=== PATIENT | male | born 1950 | race Caucasian/White ===

== ENCOUNTER 2016-12-27 12:29 | Inpatient (IN) ==
[2016-12-27] MEDS ORDERED: Ondansetron 4 MG/2 ML VIAL IVP PRN (15:43)
[2016-12-27] MEDS ORDERED: Naloxone 0.4 MG/ML INJ IVP PRN (15:43)
[2016-12-27 16:14] LABS: Basophils % 0.4 %; Eosinophils # 0.3 K/mcL (0.0-0.6); Eosinophils % 3.3 %; Hematocrit 24.9 % (37.5-50.1); Hemoglobin 8.3 g/dL (12.9-16.9); Immature Granulocytes % 0.5 % (0-4); Immature Platelets 7.8 % (1.1-6.1); Lymphocytes # 2.3 K/mcL (0.6-4.6); Lymphocytes % 27.8 %; Mean Corpuscular HGB Conc 33.3 g/dL (31.6-35.5); Mean Corpuscular Hemoglobin 31.8 pg (28.0-33.3); Mean Corpuscular Volume 95.4 fL (83.0-100.0); Mean Platelet Volume 10.8 fL (9.4-12.4); Monocytes # 0.9 K/mcL (0.0-1.3); Monocytes % 10.4 %; Neutrophils # 4.7 K/mcL (1.6-8.9); Platelet Count 211 K/mcL (140-400); Red Blood Count 2.61 M/mcL (4.19-5.50); Segmented Neutrophils % 57.6 %
[2016-12-27] MEDS: D5% in 0.45% NACL 1,000 ML IVC SCH (16:14)
[2016-12-27] MEDS: Pantoprazole 40 MG VIAL IVP SCH (17:14)
--- NOTE | 2016-12-27 18:30 | Internal Med History&Physical ---
Date of Encounter: 12/27/16 Time of Encounter: 17:00 Assessment and Plan (1) CAD (coronary artery disease) of artery bypass graft Current visit: Yes Status: Acute Stop all aspirin and Plavix due to active GI bleed. We will continue with bisoprolol and statin. Qualifiers: [place] vs. transplanted heart: [place] heart Associated angina: without angina Qualified Code(s): I25.810 - Atherosclerosis of coronary artery bypass graft(s) without angina pectoris (2) Anemia due to blood loss, acute Current visit: Yes Status: Acute Monitor hemoglobin and hematocrit every 6 hours. Transfuse if unstable hemodynamically or hemoglobin below 7.5 and continued active bleed. (3) Tobacco abuse Current visit: Yes Status: Acute I have advised smoking cessation. We will provide nicotine replacement therapy. (4) DVT prophylaxis Current visit: Yes Status: Acute Avoid anticoagulation due to active bleed. Encourage ambulation. (5) Upper gastrointestinal hemorrhage Current visit: No Status: Acute Nothing by mouth. IV Protonix. IV fluids. General surgery consult for upper endoscopy. I have discussed the case with Dr. Anthony. Anticipate EGD tomorrow. Internal Medicine - H&P: HPI Chief complaint: Rectal bleeding Admitted From: Hospital to Hospital Transfer Plans for Post Hospital Care: Home History of present illness: Mr. Grant is a 66 year old male with past medical history significant for CAD status post CABG who was transferred from an outside hospital where he presented with rectal bleeding. Patient reports 6 episodes of bloody bowel movements night and 2 more episodes last night, denies any aggravating or alleviating factors any triggering events, denies associated hematemesis nausea and vomiting. He states he was more weak and lightheaded when standing up. He has had similar symptoms in the past and had endoscopy however the source was not found that time. Prior to that event he has had a history of bleeding ulcers. A 10 point review of systems was negative except hernia history of present illness. Family history was reviewed and found to be noncontributory to this presentation. Past Med Surg Social Fam HX - Past Medical History Medical history: coronary artery disease, GI bleed, hyperlipidemia, hypertension , myocardial infarction Psychiatric history: no psych history - Past Surgical History Surgical History: appendectomy, cholecystectomy, coronary bypass (CABG) - Social History Smoking Status: Current every day smoker Packs per day: 1 Smokeless Tobacco Status: No Alcohol use: none Drug use: none Internal Medicine - H&P: Meds Aspirin 81 mg PO DAILY 12/27/16 [History] Bisoprolol Fumarate [Zebeta] 10 mg PO DAILY 12/27/16 [History] Clopidogrel [Plavix] 75 mg PO DAILY 12/27/16 [History] Multivitamin/Ferrous Sulfate [One-Daily Aquaz-Pqh-Xdgc Tab] 18 mg PO DAILY 12/27 [History] Simvastatin [Zocor] 80 mg PO DAILY 12/27/16 [History] Allergies No Known Allergies Allergy (Verified 12/27/16 09:18) All Systems PM: A 10-system review of systems was performed and is negative for pertinent findings except as documented above in the HPI. - Eye Eye exam: Present: PERRL, conjuntiva pink, sclera anicteric Pupils: Present: PERRL - Neck Neck exam general surgery: Present: supple, trachea midline. Absent: lymphadenopathy - Respiratory Respiratory exam: Present: CTAB. Absent: accessory muscle use, rales, rhonchi, wheezes - Cardiovascular Cardiovascular exam: Present: RRR, +S1, +S2. Absent: diastolic murmur, gallop, rubs, systolic murmur - GI/Abdominal GI/Abdominal exam: Present: normal bowel sounds, soft, no peritoneal signs. Absent: distended, tenderness - Extremities Exam Extremities exam: Present: warm, radial pulses palpable and symetrical. Absent : calf tenderness, cyanotic, pedal edema - Neurological Exam Neurological exam: Present: CN II-XII intact, oriented X3, no focal deficits. Absent: pronater drift, facial droop, speech deficit - Skin Skin exam: Present: dry, intact Internal Med - H&P Results - Labs CBC & Chem 7: 12/27/16 16:05 Labs: Short CBC 12/27/16 Range/Units 16:05 WBC 8.1 (4.3-11.1) K/mcL Hgb 8.3 L (12.9-16.9) g/dL Hct 24.9 L (37.5-50.1) % Plt Count 211 (140-400) K/mcL Neutrophils # 4.7 (1.6-8.9) K/mcL Per chart review hemoglobin at [facility] from today was 9.5.
[2016-12-27] MEDS: Nicotine 21 MG PATCH.TD24 TD SCH (18:56)
[2016-12-27 19:16] LABS: Hematocrit 24.4 % (37.5-50.1)
[2016-12-27 21:28] LABS: INR 1.2; Prothrombin Time 13.2 Seconds (9.4-12.1)
--- NOTE | 2016-12-27 22:02 | General Surgery Consult Note ---
Date of Encounter: 12/27/16 Time of Encounter: 21:15 History of Present Illness Consult date: 12/27/16 Requesting physician: Sushil Broderick History of present illness: 66-year-old male patient referred for further evaluation of melena and anemia. The patient indicates that he has had this occur in the past, going both upper and lower endoscopy with no specific findings. This episode began approximately , 12/25/16. Patient indicates he felt somewhat dizzy and lightheaded following day but did not seek medical attention until this morning. The patient presented to [facility] for further evaluation and treatment. He was transferred to [facility] after blood draw demonstrated a hemoglobin of 8.3 and hematocrit 24.9. The patient indicates he last was endoscopically examined at [facility] by Dr Hall (?) in 2014. Past medical history: Coronary artery disease status post CABG in 1997; coronary artery stenting 2 in 1999. Prior GI bleed as mentioned above; hypertension. Surgical history: CABG, cholecystectomy Allergies: No known drug allergies Medications: Simvastatin 80 mg 1 by mouth every evening Clopidogrel 75 mg by mouth daily Bisoprolol 10 mg by mouth daily Aspirin 81 mg by mouth daily Multivitamin 1 by mouth daily Social history: Patient admits to half a pack cigarettes daily for the last 55 years; he does not consume alcohol, never has. He does not use illicit drugs. On physical examination: Age-appropriate male resting comfortably in his hospital bed. He appears to be in no acute distress. The patient has been afebrile, 98.0; pulse 67, respirations 16, blood pressure 106/60; SPO2 on room air 98%. Skin is warm, without obvious jaundice Lungs: Clear to auscultation, no abdominal pain with deep inspiration Cardiac: Regular rate, no appreciable murmurs Abdomen: Soft, nontender. Bowel sounds present. All obvious intra- abdominal masses or hepatosplenomegaly. Extremities: No obvious clubbing cyanosis or edema. Laboratories: White count 9.3; initial hemoglobin 9.5 - most recent 8.0; hematocrit initially 28.7, most recently 24.4; platelet count 211,000 Sodium 139, potassium 5.0, chloride 109, bicarbonate 22, BUN 21, creatinine 1.14. LFTs within normal limits PT/INR 13.2 and 1.2 respectively Impression: 76-year-old male transferred from [facility] for further evaluation recurrent GI hemorrhage. Patient with approx 71 history melena iwth documented fall in H&H. Historical information avaliable at the time of this dictation suggestive chronic anemia. The patient describes previous EGD and colonoscopy with no specific findings. I have discussed this with the patient and have arranged for a repeat EGD in the a.m. The procedure was discussed. The procedure will be completed using IV medications. Risks include hemorrhage, infection, aspiration, Alvaro disruption to the esophagus and failure to identify etiology for this patient's GI bleeding. The patient expressed understanding and is willing to proceed. Consent has been obtained. Past Med Surg Social Fam HX - Past Medical History Medical history: coronary artery disease, GI bleed, hyperlipidemia, hypertension , myocardial infarction Psychiatric history: no psych history - Past Surgical History Surgical History: appendectomy, cholecystectomy, coronary bypass (CABG) - Social History Smoking Status: Current every day smoker Packs per day: 1 Smokeless Tobacco Status: No Alcohol use: none Drug use: none Medications and Allergies Aspirin 81 mg PO DAILY 12/27/16 [History] Bisoprolol Fumarate [Zebeta] 10 mg PO DAILY 12/27/16 [History] Clopidogrel [Plavix] 75 mg PO DAILY 12/27/16 [History] Multivitamin/Ferrous Sulfate [One-Daily Xgjuj-Tvx-Inbt Tab] 18 mg PO DAILY 12/27 [History] Simvastatin [Zocor] 80 mg PO DAILY 12/27/16 [History] Allergies No Known Allergies Allergy (Verified 12/27/16 09:18) Review of Systems All systems PM: A 10-system review of systems was performed and is negative for pertinent findings except as documented above in the HPI. Results - Labs 12/27/16 19:00 Abnormal lab results RBC 2.61 M/mcL (4.19-5.50) L 12/27/16 16:05 Hgb 8.0 g/dL (12.9-16.9) L 12/27/16 19:00 Hct 24.4 % (37.5-50.1) L 12/27/16 19:00 Immature Plt Fraction 7.8 % (1.1-6.1) H 12/27/16 16:05 PT 13.2 Seconds (9.4-12.1) H 12/27/16 20:58 POC Glucose 121 (58-89) H 12/27/16 17:07 All other labs normal. Consult Discharge Plan - Plan Referrals: NO,PCP [Primary Care Provider] -
[2016-12-28 01:12] LABS: Hematocrit 23.4 % (37.5-50.1); Hemoglobin 7.7 g/dL (12.9-16.9)
[2016-12-28 01:27] LABS: Alanine Aminotransferase 9 Units/L (0-55); Albumin 2.8 g/dL (3.5-5.0); Albumin/Globulin Ratio 1.2 (1.1-2.2); Alkaline Phosphatase 103 Units/L (38-126); Aspartate Amino Transferase 11 Units/L (5-34); BUN/Creatinine Ratio 18 (6-26); Bilirubin,Total 0.9 mg/dL (0.2-1.2); Blood Urea Nitrogen 16 mg/dL (8-26); Calcium 7.7 mg/dL (8.6-10.8); Carbon Dioxide 24 mEq/L (19-29); Chloride 109 mEq/L (98-109); Globulin 2.3 g/dL (2.4-3.5); Glucose 114 mg/dL (70-99); Magnesium 1.6 mg/dL (1.6-2.6); Osmolality,Calculated 290 (280-300); Potassium 3.5 mEq/L (3.5-4.5); Sodium 139 mEq/L (136-145); Total Protein 5.1 g/dL (6.0-8.3); eGFR For African Americans > 60 (> 60); eGFR For Non-African Americans > 60 (> 60)
[2016-12-28] MEDS: D5% in 0.45% NACL 1,000 ML IVC SCH ×2 (04:54→18:06)
[2016-12-28] MEDS: Pantoprazole 40 MG VIAL IVP SCH ×2 (05:46→18:07)
[2016-12-28] MEDS: Bisoprolol/HCTZ 10/6.25 TABLET PO SCH (07:23)
[2016-12-28] MEDS ORDERED: Simethicone 40 MG/0.6 ML MLS IR ONE (08:16)
[2016-12-28] MEDS ORDERED: *HR* FentaNYL (PF) 100 MCG/2 ML VIAL IVP PRN (08:16)
[2016-12-28] MEDS ORDERED: Tetracaine/Benzocaine/Butamben 200MG/SPRAY (100SPY/BOT) MM ONE (08:16)
--- NOTE | 2016-12-28 08:19 | Pre-Sedation Evaluation ---
Pre-sedation evaluation - Pre-sedation checklist Date of procedure: 12/28/16 Procedure: EGD Recent Vitals: Last Vital Signs Temp 98.5 F 12/28/16 08:14 Pulse 71 12/28/16 08:14 Resp 18 12/28/16 08:14 BP 148/63 12/28/16 08:14 Pulse Ox 95 12/28/16 08:14 H&P (including ROS) documented in medical record: Yes Previous reaction to sedatives/anesthetics: No Dietary Status: NPO after Midnight Airway Assessment: Patient can open mouth completely, TMJ function normal, Micrognathia (under-bite, receding chin) absent, Neck with adequate range of motion Dentition: dentures removed Possible difficult airway: No ASA Classification *see protocol: CLASS II-Mild systemic disease Plan of Care: Pt appropriate candidate for procedure/moderate/conscious sedation , Risks/benefits of procedure/sedation discussed w/ patient/family
[2016-12-28] MEDS ORDERED: *HR* FentaNYL (PF) 100 MCG/2 ML VIAL ONE (08:21)
[2016-12-28] MEDS ORDERED: *HR* Midazolam HCl 5 MG/5 ML VIAL IVP ONE (08:21)
[2016-12-28] MEDS: *HR* Midazolam HCl 5 MG/5 ML VIAL IVP PRN ×3 (08:24→08:42)
[2016-12-28] MEDS ORDERED: 0.9 % Sodium Chloride 1,000 ML IVC SCH (08:30)
[2016-12-28 12:11] LABS: Hematocrit 24.4 % (37.5-50.1); Hemoglobin 8.1 g/dL (12.9-16.9)
--- NOTE | 2016-12-28 16:34 | Internal Med Progress Note ---
Date of Encounter: 12/28/16 Time of Encounter: 16:31 - Assessment and plan (1) Anemia due to blood loss, acute Current Visit: Yes Status: Acute Assessment and plan: h/o gastric ulcers in the past. passing dark tarry stools since , no BRBPR. surgery consulted, planned for EGD tomm am. transfusion prn, currently hemodynamically stable. (2) CAD (coronary artery disease) of artery bypass graft Current Visit: Yes Status: Acute Assessment and plan: he reports stent placed in 1999. asa and plavix has been held. conitnue othe rhome meds. Qualifiers: [place] vs. transplanted heart: [place] heart Associated angina: without angina Qualified Code(s): I25.810 - Atherosclerosis of coronary artery bypass graft(s) without angina pectoris (3) DVT prophylaxis Current Visit: Yes Status: Acute (4) Upper gastrointestinal hemorrhage Current Visit: No Status: Acute Assessment and plan: as in anemia - Time Spent With Patient 25 - 35 minutes - Subjective Interval history: Seen on the bedside, patient laying in bed in no acute distress. Denies abdominal pain, nausea or vomiting. Presented with passing dark stools, has history of GI bleed in the past. Surgery has been consulted, possible EGD tomorrow morning. - Constitutional Vitals: Temp Pulse Resp BP Pulse Ox 98.4 F 60 16 102/64 97 12/28/16 15:47 12/28/16 15:47 12/28/16 15:47 12/28/16 15:47 12/28/16 15:47 General appearance: Present: A&O X 3, no acute distress Exam: Neck Neck exam general surgery: Present: supple, trachea midline. Absent: lymphadenopathy - Respiratory Respiratory exam: Present: CTAB. Absent: accessory muscle use, rales, rhonchi, wheezes - Cardiovascular Cardiovascular exam: Present: RRR, +S1, +S2. Absent: diastolic murmur, gallop, rubs, systolic murmur - GI/Abdominal GI/Abdominal exam: Present: normal bowel sounds, soft, no peritoneal signs. Absent: distended, tenderness - Extremities Exam Extremities exam: Present: warm, radial pulses palpable and symetrical. Absent : calf tenderness, cyanotic, pedal edema - Neurological Exam Neurological exam: Present: CN II-XII intact, oriented X3, no focal deficits. Absent: pronater drift, facial droop, speech deficit - Skin Skin exam: Present: dry, intact Internal Medicine: Result - Labs CBC & Chem 7: 12/28/16 12:06 12/28/16 00:56 Labs: Short CBC 12/27/16 12/28/16 12/28/16 Range/Units 19:00 00:56 12:06 Hgb 8.0 L 7.7 L 8.1 L (12.9-16.9) g/dL Hct 24.4 L 23.4 L 24.4 L (37.5-50.1) % BMP 12/28/16 00:56 Sodium 139 Potassium 3.5 D Chloride 109 Carbon Dioxide 24 BUN 16 Creatinine 0.91 Glucose 114 H Calcium 7.7 L Liver Function 12/28/16 Range/Units 00:56 Total Bilirubin 0.9 (0.2-1.2) mg/dL AST 11 (5-34) Units/L ALT 9 (0-55) Units/L Alkaline Phosphatase 103 (38-126) Units/L Albumin 2.8 L (3.5-5.0) g/dL - ABG Interpretation ABG results: PT/INR, D-dimer PT 13.2 Seconds (9.4-12.1) H 12/27/16 20:58 Consult Discharge Plan - Plan Referrals: NO,PCP [Primary Care Provider] -
[2016-12-28] MEDS: Nicotine 21 MG PATCH.TD24 TD SCH (18:07)
[2016-12-29] MEDS: Pantoprazole 40 MG VIAL IVP SCH (06:05)
[2016-12-29] MEDS: D5% in 0.45% NACL 1,000 ML IVC SCH (06:06)
[2016-12-29] MEDS: Bisoprolol/HCTZ 10/6.25 TABLET PO SCH (08:39)
[2016-12-29 09:48] LABS: Basophils % 0.4 %; Eosinophils # 0.2 K/mcL (0.0-0.6); Eosinophils % 3.2 %; Immature Granulocytes % 0.4 % (0-4); Lymphocytes # 1.5 K/mcL (0.6-4.6); Lymphocytes % 20.4 %; Mean Corpuscular HGB Conc 33.3 g/dL (31.6-35.5); Mean Platelet Volume 11.4 fL (9.4-12.4); Monocytes # 0.7 K/mcL (0.0-1.3); Monocytes % 9.1 %; Neutrophils # 4.8 K/mcL (1.6-8.9); Platelet Count 213 K/mcL (140-400); Red Cell Distribution Width 12.6 % (11.5-14.5); Segmented Neutrophils % 66.5 %
[2016-12-29 10:00] LABS: BUN/Creatinine Ratio 7 (6-26); Blood Urea Nitrogen 7 mg/dL (8-26); Calcium 7.8 mg/dL (8.6-10.8); Carbon Dioxide 22 mEq/L (19-29); Chloride 107 mEq/L (98-109); Glucose 191 mg/dL (70-99); Osmolality,Calculated 291 (280-300); Potassium 3.6 mEq/L (3.5-4.5); Sodium 139 mEq/L (136-145); eGFR For African Americans > 60 (> 60); eGFR For Non-African Americans > 60 (> 60)
[2016-12-29 10:45] VITALS: BP 118/63
--- NOTE | 2016-12-29 12:19 | Discharge Summary ---
Date of Encounter: 12/29/16 Time of Encounter: 12:16 - Discharge Diagnosis (1) Anemia due to blood loss, acute Priority: Primary Status: Acute (2) CAD (coronary artery disease) of artery bypass graft Priority: Secondary Status: Acute Qualifiers: [place] vs. transplanted heart: [place] heart Associated angina: without angina Qualified Code(s): I25.810 - Atherosclerosis of coronary artery bypass graft(s) without angina pectoris (3) DVT prophylaxis Priority: Secondary Status: Acute (4) Upper gastrointestinal hemorrhage Priority: Primary Status: Acute - Discharge Medications Prescriptions: Omeprazole [PriLOSEC] 40 mg PO BID #60 cap Sucralfate [Carafate] 1 gm PO QIDAC #120 tablet Home Medications: Aspirin 81 mg PO DAILY 12/27/16 [History] Bisoprolol Fumarate [Zebeta] 10 mg PO DAILY 12/27/16 [History] Multivitamin/Ferrous Sulfate [One-Daily Ueuut-Tgh-Cuen Tab] 18 mg PO DAILY 12/27 [History] Simvastatin [Zocor] 80 mg PO DAILY 12/27/16 [History] Omeprazole [PriLOSEC] 40 mg PO BID #60 cap 12/29/16 [Rx] Sucralfate [Carafate] 1 gm PO QIDAC #120 tablet 12/29/16 [Rx] Allergies/Adverse Reactions: Allergies No Known Allergies Allergy (Verified 12/27/16 09:18) Date of admission: 12/27/16 15:43 Primary care physician: PCP NO Consults: 12/27/16 18:26 Consult to Surgery [CONS] Routine Consulting Provider: Ulysses Anthony Reason for Consult: GI bleed Time Notified: 18:26 Call Completed: Yes Discharging clinician: Lamar Melvin Anticipated date of discharge: 12/29/16 - Patient Status Disposition: Home, Self-Care Condition: Fair Functional capacity at discharge: independent ambulation Overall status at discharge: patient is back to baseline - Discharge Instructions Follow Up With: Cal Cuevas CNP [Primary Care Provider] - 01/06/17 10:40 am - Diet and Activity Activity: resume usual activities as tolerated Diet: advance to your usual diet Interval History: 66-year-old male patient with past medical history significant for CAD status post CABG referred for further evaluation of melena and anemia. The patient indicates that he has had this occur in the past, going both upper and lower endoscopy with no specific findings. This episode began approximately , 12/25/16. Patient indicates he felt somewhat dizzy and lightheaded following day but did not seek medical attention until this morning. The patient presented to [facility] for further evaluation and treatment. He was transferred to [facility] after blood draw demonstrated a hemoglobin of 8.3 and hematocrit 24.9. The patient indicates he last was endoscopically examined at [facility] by Dr Hall (?) in 2014. general surgery was consulted and he underwent EGD that showed non bleeding ulcer that was cauterized. his hb has remained stable and he will be dc on prilosec q12 and carafate. will continue asa and will hold his plavix for now until he follows up with his PCP, he has had stent placed many yrs ago, will leave to PCP to evaluate for the continuation of his plavix. he is being dc home in stable condition. Hospital course: Mr. Grant is a 66 year old male Time spent discussing smoking cessation with patient: more than 10 minutes - Time Spent with Patient Total time spent providing and/or coordinating discharge services: Greater than 30 minutes - Constitutional Vitals: Temp Pulse Resp BP Pulse Ox 98.3 F 70 18 118/63 97 12/29/16 10:44 12/29/16 10:44 12/29/16 10:44 12/29/16 10:44 12/29/16 10:44 General appearance: Present: A&O X 3, no acute distress Exam: Neck Neck exam general surgery: Present: supple, trachea midline. Absent: lymphadenopathy - Respiratory Respiratory exam: Present: CTAB. Absent: accessory muscle use, rales, rhonchi, wheezes - Cardiovascular Cardiovascular exam: Present: RRR, +S1, +S2. Absent: diastolic murmur, gallop, rubs, systolic murmur - GI/Abdominal GI/Abdominal exam: Present: normal bowel sounds, soft, no peritoneal signs. Absent: distended, tenderness - Extremities Exam Extremities exam: Present: warm, radial pulses palpable and symetrical. Absent : calf tenderness, cyanotic, pedal edema - Neurological Exam Neurological exam: Present: CN II-XII intact, oriented X3, no focal deficits. Absent: pronater drift, facial droop, speech deficit - Skin Skin exam: Present: dry, intact
== END 2016-12-29 13:30 | disposition home or self-care (01) | DRG 384 ==
LOC: 3ANU
PROVIDERS: ADMIT Internal Medicine; ATTEND Internal Medicine Endocrinology, Diabetes & Metabolism